=== PATIENT | female | born 1960 | race African-American/Black ===

== ENCOUNTER 2017-06-20 10:58 | Emergency (ER) | payer OTHER ==
[2017-06-20 11:10] VITALS: BP 174/79; PULSE 53; TEMP 97.9; BMI 26.5
--- NOTE | 2017-06-20 12:19 | PDOC ---
History of Present Illness - General Chief Complaint: Injury Stated Complaint: ANKLE PAIN Time Seen by Provider: 06/20/17 11:45 History Source: Patient Exam Limitations: No Limitations - History of Present Illness Initial Comments: 06/20/17 12:33 Was walking this morning, stumbled and fell, uncertain as to mechanism sustained a left ankle injury. States is painful to walk unable to bear weight. No previous injury to same. No other injury Occurred: reports: just prior to arrival Severity: reports: mild Modifying Factors: improves with: None Associated Symptoms (Fall): denies symptoms Past History - Travel Traveled outside of the country in the last 30 days: No Close contact w/someone who was outside of country & ill: No - Past Medical History Allergies/Adverse Reactions: Allergies Allergy/AdvReac Type Severity Reaction Status Date / Time prednisone Allergy Verified 06/20/17 11:07 Home Medications: Ambulatory Orders Alendronate Na [Fosamax (Weekly)] 70 mg PO WEEKLY 01/13/15 Famotidine [Pepcid -] 20 mg PO DAILY 01/13/15 Hydrochlorothiazide [Hctz -] 12.5 mg PO DAILY 01/13/15 Levothyroxine [Synthroid -] 50 mcg PO DAILY 01/13/15 Simvastatin [Zocor -] 20 mg PO HS 01/13/15 Metoprolol Tartrate [Lopressor -] 25 mg PO BID 01/14/15 Acetaminophen/Caffeine/Butalb [Fioricet -] 1 tab PO Q6H PRN #20 tablet 07/21/16 Acetaminophen/Caffeine/Butalb [Fioricet -] 1 tab PO Q6H PRN #20 tablet 07/21/16 Metoclopramide HCl [Reglan] 10 mg PO Q6H PRN #15 tablet 07/21/16 Naproxen [Naprosyn -] 500 mg PO BID PRN #20 tablet 07/21/16 Anemia: No Asthma: No Cancer: No COPD: No Diabetes: No HTN: Yes Hypercholesterolemia: Yes Liver Disease: No Seizures: No Thyroid Disease: Yes (Hypo) - Surgical History Abdominal Surgery: No Lung Surgery: No Neurologic Surgery: No - Immunization History Immunization Up to Date: Yes - Psycho/Social/Smoking Cessation Hx Suicidal Ideation: No Smoking History: Never smoked Have you smoked in the past 12 months: No If you are a former smoker, when did you quit?: 20yrs Information on smoking cessation initiated: No Hx Alcohol Use: No Drug/Substance Use Hx: No Substance Use Type: None Trauma Specific PMHX - Complaint Specific PMHX Back Injury: No Neck Injury: No Review of Systems - Review of Systems Able to Perform ROS?: Yes Is the patient limited Setswana proficient: Yes Constitutional: Yes: Symptoms Reported Respiratory: No: Symptoms reported Musculoskeletal: Yes: Symptoms Reported, See HPI, Joint Pain, Joint Swelling ( swelling and pain to ) Integumentary: Yes: Symptoms Reported, See HPI, Bruising Neurological: Yes: See HPI. No: Symptoms reported All Other Systems: Reviewed and Negative *Physical Exam - Vital Signs Last Vital Signs Temp Pulse Resp BP Pulse Ox 97.9 F 53 L 17 174/79 100 06/20/17 11:07 06/20/17 11:07 06/20/17 11:07 06/20/17 11:07 06/20/17 11:07 - Physical Exam General Appearance: Yes: Nourished, Appropriately Dressed, Apparent Distress, Mild Distress HEENT: positive: TILA, Normal ENT Inspection, TMs Normal, Pharynx Normal Extremity: positive: Normal Capillary Refill, Tender (point tenderness to the lateral malleolus, with swelling, negative squeeze test, negative navicular or fifth metatarsal pain. Range of motion is limited secondary to this tenderness. Neurovascular intact to foot). 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 Pilo wrap Aircast and crutches provided. Will follow-up with Dr. Carreno orthopedist this week *DC/Admit/Observation/Transfer Diagnosis at time of Disposition: Fracture of distal end of left fibula Qualifiers: Encounter type: initial encounter Fracture type: closed Fracture morphology: other fracture Qualified Code(s): S82.832A - Other fracture of upper and lower end of left fibula, initial encounter for closed fracture - Discharge Dispostion Disposition: HOME Condition at time of disposition: Stable Admit: No - Referrals Referrals: Vinicio Gordon MD [Primary Care Provider] - Charlie Carreno MD [Staff Physician] - - Patient Instructions Printed Discharge Instructions: DI for Ankle Fracture Additional Instructions: Rest, ice to area on and off for 15 minutes 4-6 times a day Avoid heavy lifting or exercise until pain and swelling is resolved or until further directed Keep area highly elevated to reduce swelling Use splints/Pilo wrap as directed Followup with orthopedist in one to 2 days if not improving, if significantly improved may wait one week for followup with orthopedist May use ibuprofen 2-200 mg tablets every 6 hours as needed for pain May take one half to one tablet of the Percocet tablets every 8 hours, remembering will make very dizzy and sleepy Dr. Carreno sees patients on Tuesday mornings 9 AM to 12 PM and afternoon 12 PM to 4 PM on [address] at [facility] - Post Discharge Activity Work/School Note: Back to Work
[2017-06-20] MEDS ORDERED: OXYCODONE/APAP 5/325MG COMBO TABLET ONE (12:28)
[2017-06-20] MEDS ORDERED: IBUPROFEN 600 MG TABLET (FP) PO ONE (12:29)
== END 2017-06-20 12:58 | disposition home or self-care (01) ==
LOC: JERFT 10:58
PROC: 2W3MX1Z Immobilization of Left Lower Extremity using Splint (ICD-10-PCS; principal; 2017-06-20)
DX: S82.832A Other fracture of upper and lower end of left fibula, initial encounter for closed fracture (principal); W18.39XA Other fall on same level, initial encounter; Y93.01 Activity, walking, marching and hiking; Y92.89 Other specified places as the place of occurrence of the external cause
CPT/HCPCS: 29515; 73610-TC-LT; 99281-25

== ENCOUNTER 2017-12-21 09:58 | Day surgery (SDC) | payer OTHER ==
[2017-12-16 09:44] VITALS: BMI 30.9
[2017-12-21] MEDS ORDERED: PROPOFOL 20 ML ONE (10:29)
[2017-12-21 11:45] VITALS: BP 106/74; PULSE 68; TEMP 98
--- NOTE | 2017-12-23 14:40 | PATH ---
Surgical Pathology Report Patient Name: CASTILLO BONNER [facility]. Rec. #: [id number] /Age/Gender: 1960 (Age: 57) / F Account: [id number] Location: [facility]-ENDOSCOPY Taken: 12/21/2017 Received: 12/21/2017 Reported: 12/23/2017 Physicians: Mala Shields M.D. Specimen(s) Received A: BX DUODENUM B: BX ANTRUM C: BX GE JUNCTION Clinical History Preoperative diagnosis: Anemia Postoperative diagnosis: Rule out celiac disease, mild gastritis, antral ulcer and erosions Final Diagnosis A. DUODENUM, BIOPSY: DUODENAL MUCOSA WITH NO PATHOLOGIC CHANGES. NO HISTOLOGIC EVIDENCE OF GLUTEN SENSITIVE ENTEROPATHY (CELIAC SPRUE) IDENTIFIED. B. STOMACH, ANTRUM, BIOPSY: FOCAL MILD CHRONIC GASTRITIS. IMMUNOSTAIN FOR H. PYLORI IS NEGATIVE. C. GE JUNCTION, BIOPSY: SQUAMOUS AND GASTRIC MUCOSA WITH CHRONIC INFLAMMATION, WITH PAPILLOMATOSIS SUGGESTIVE OF REFLUX ESOPHAGITIS, AND FOCAL INTESTINAL METAPLASIA CONSISTENT WITH ESPINO'S ESOPHAGUS IN THE PROPER CLINICAL CONTEXT. NO DYSPLASIA IDENTIFIED. Electronically Signed Librado Obregon M.D. Gross Description A. Received in formalin, labeled "duodenum" is a dejesus, irregular portion of soft tissue measuring 0.4 cm. in greatest dimension. The specimen is submitted in toto in one cassette. B. Received in formalin, labeled "antrum" are 2 dejesus, irregular portions of soft tissue averaging 0.4 cm. in greatest dimension. The specimens are submitted in toto in one cassette. C. Received in formalin, labeled "GE junction" are 2 dejesus, irregular portions of soft tissue averaging 0.2 cm. in greatest dimension. The specimens are submitted in toto in one cassette. 12/22/2017 [facility]12/22/2017
== END 2017-12-21 11:46 | disposition home or self-care (01) ==
LOC: FASU-ENDO 09:58
PROVIDERS: ATTEND Internal Medicine Gastroenterology
PROC: 0DB48ZX Excision of Esophagogastric Junction, Via Natural or Artificial Opening Endoscopic, Diagnostic (ICD-10-PCS; 2017-12-21)
PROC: 0DB98ZX Excision of Duodenum, Via Natural or Artificial Opening Endoscopic, Diagnostic (ICD-10-PCS; principal; 2017-12-21 10:47)
PROC: 0DB68ZX Excision of Stomach, Via Natural or Artificial Opening Endoscopic, Diagnostic (ICD-10-PCS; 2017-12-21 10:47)
DX: D64.9 Anemia, unspecified (principal); K29.50 Unspecified chronic gastritis without bleeding; K25.9 Gastric ulcer, unspecified as acute or chronic, without hemorrhage or perforation; D13.1 Benign neoplasm of stomach
CPT/HCPCS: 88305-TC; 88342-TC

== ENCOUNTER 2018-08-30 09:02 | Day surgery (SDC) | payer OTHER ==
[2018-08-24 11:26] VITALS: BMI 32.0
[2018-08-30 09:40] VITALS: TEMP 98.3
[2018-08-30] MEDS ORDERED: PROPOFOL 20 ML ONE ×2 (09:55)
[2018-08-30 11:09] VITALS: BP 112/65; PULSE 72
== END 2018-08-30 11:10 | disposition home or self-care (01) ==
LOC: FASU-ENDO 09:02
PROVIDERS: ATTEND Internal Medicine Gastroenterology
PROC: 0DJD8ZZ Inspection of Lower Intestinal Tract, Via Natural or Artificial Opening Endoscopic (ICD-10-PCS; principal; 2018-08-30 10:10)
DX: D64.9 Anemia, unspecified (principal); K64.2 Third degree hemorrhoids

== ENCOUNTER 2019-11-17 08:29 | Emergency (ER) | payer OTHER ==
[2019-11-17 08:44] VITALS: BP 166/92; PULSE 80; TEMP 97.9; BMI 31.8
[2019-11-17] MEDS ORDERED: KETOROLAC TROMETHAMINE 60 MG/2 ML VIAL IM ONE (09:42)
[2019-11-17] MEDS ORDERED: KETOROLAC TROMETHAMINE 60 MG/2 ML VIAL ONE (09:49)
--- NOTE | 2019-11-17 10:01 | PDOC ---
History of Present Illness - General Chief Complaint: Pain Stated Complaint: LT ARM PAIN Time Seen by Provider: 11/17/19 09:40 History Source: Patient Exam Limitations: No Limitations - History of Present Illness Associated Symptoms: denies: chest pain, fever/chills, rash, shortness of breath , weakness Past History - Travel Traveled outside of the country in the last 30 days: No Close contact w/someone who was outside of country & ill: No - Past Medical History Allergies/Adverse Reactions: Allergies Allergy/AdvReac Type Severity Reaction Status Date / Time prednisone Allergy Verified 11/17/19 08:37 Home Medications: Ambulatory Orders Alendronate Na [Fosamax (Weekly)] 70 mg PO WEEKLY 01/13/15 Hydrochlorothiazide [Hctz -] 12.5 mg PO DAILY 01/13/15 Levothyroxine [Synthroid -] 50 mcg PO DAILY 01/13/15 Simvastatin [Zocor -] 20 mg PO HS 01/13/15 Pantoprazole Sodium 40 mg PO DAILY 06/14/19 Aspirin 81 mg PO DAILY #30 tab.chew 06/15/19 Metoprolol Succinate 25 mg PO BID 06/15/19 Ibuprofen 800 mg PO ACDIN 7 Days #21 tablet 11/17/19 Methocarbamol [Robaxin -] 500 mg PO BID #14 tablet 11/17/19 Anemia: No Asthma: No Cancer: No Cardiac Disorders: No CVA: No COPD: No CHF: No Dementia: No Diabetes: No GI Disorders: Yes Disorders: No HTN: Yes Hypercholesterolemia: Yes Liver Disease: No Seizures: No Thyroid Disease: Yes - Surgical History Abdominal Surgery: No Appendectomy: No Cardiac Surgery: No Cholecystectomy: No Lung Surgery: No Neurologic Surgery: No Orthopedic Surgery: No - Immunization History Immunization Up to Date: Yes - Psycho Social/Smoking Cessation Hx Smoking History: Never smoked Have you smoked in the past 12 months: No If you are a former smoker, when did you quit?: 20yrs Hx Alcohol Use: No Drug/Substance Use Hx: No Substance Use Type: None Hx Substance Use Treatment: No Review of Systems - Review of Systems Able to Perform ROS?: Yes Is the patient limited Icelandic proficient: No Constitutional: No: Chills, Fever Cardiac (ROS): No: Chest Pain, Lightheadedness, Palpitations, Chest Tightness Musculoskeletal: Yes: Muscle Pain. No: Back Pain, Gout, Joint Pain, Joint Swelling, Muscle Weakness, Joint Stiffness Neurological: No: Dizziness *Physical Exam - Vital Signs Last Vital Signs Temp Pulse Resp BP Pulse Ox 97.9 F 80 16 166/92 99 11/17/19 08:40 11/17/19 08:40 11/17/19 08:40 11/17/19 08:40 11/17/19 08:40 - Physical Exam General Appearance: Yes: Nourished HEENT: positive: EOMI Neck: positive: Supple Respiratory/Chest: positive: Lungs Clear, Normal Breath Sounds Cardiovascular: positive: Regular Rhythm, Regular Rate, S1, S2 Musculoskeletal: positive: Muscle Spasm (left upper arm pain on palpation, limited ROM due to pain, distal pulse intct, 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) Extremity: positive: Normal Capillary Refill, Normal Inspection Neurologic: positive: geriatrician II-XII NML intact, Fully Oriented, Alert, Normal Mood/ Affect, Normal Response, Motor Strength 03/25 ED Treatment Course - RADIOLOGY Radiology Studies Ordered: Category Date Time Status HUMERUS-LEFT [RAD] Stat Radiology 11/17/19 09:42 Ordered SHOULDER-LEFT [RAD] Stat Radiology 11/17/19 09:42 Ordered - Medications Given in the ED: ED Medications Discontinued Medications Generic Name Dose Route Start Last Admin Trade Name Freq PRN Reason Stop Dose Admin Ketorolac Tromethamine 60 mg 11/17/19 09:42 11/17/19 09:53 Toradol Injection - IM 11/17/19 09:43 60 mg ONCE ONE Administration Medical Decision Making - Medical Decision Making 11/17/19 09:58 59 years old female with no prior medical history she is right-hand dominant presents with atraumatic left shoulder and upper arm pain for 1 week. Patient denies chest pain, shortness of breath, weakness,. She reports heavy lifting at work. She is taking Tylenol at home with no relief. X-rays were normal patient felt better after Toradol. Range of motion reassessed with improvement 11/17/19 12:19 Discharge - Discharge Information Problems reviewed: Yes Clinical Impression/Diagnosis: Arm pain, left Shoulder pain, left Qualifiers: Chronicity: acute Qualified Code(s): M25.512 - Pain in left shoulder Condition: Stable Disposition: HOME - Admission No - Additional Discharge Information Prescriptions: Ibuprofen 800 mg PO ACDIN 7 Days #21 tablet Methocarbamol [Robaxin -] 500 mg PO BID #14 tablet Prescription Drug Monitoring Program (I-STOP) results: I-STOP not reviewed - Follow up/Referral Referrals: Vinicio Gordon MD [Primary Care Provider] - Brigido Zamora MD [Staff Physician] - - Patient Discharge Instructions Patient Printed Discharge Instructions: DI for Arm Pain Additional Instructions: Your x-rays were negative for acute fracture or dislocation There is some calcification in the shoulder that could cause irritation. Please take medication as prescribed. Follow-up with orthopedic if pain persists. Return to the emergency room if worsening symptoms occurs - Post Discharge Activity
== END 2019-11-17 11:44 | disposition home or self-care (01) ==
LOC: JER 08:29 → JERFT 08:29
PROC: 3E0233Z Introduction of Anti-inflammatory into Muscle, Percutaneous Approach (ICD-10-PCS; principal; 2019-11-17)
DX: M79.602 Pain in left arm (principal); M25.512 Pain in left shoulder; M79.18 Myalgia, other site; I10 Essential (primary) hypertension; E78.5 Hyperlipidemia, unspecified; E78.00 Pure hypercholesterolemia, unspecified; Z88.8 Allergy status to other drugs, medicaments and biological substances
CPT/HCPCS: 73030-TC-LT-FY; 73060-TC-LT-FY; 96372; 99281-25